=== PATIENT | female | born 2000 | race Hispanic/Latino ===

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

== ENCOUNTER 2018-11-25 18:23 | Emergency (ER) | payer BC, OTHER ==
[2018-11-25] MEDS ORDERED: ACETAMINOPHEN EXTRA STRENGTH 500 MG TABLET ONE (19:08)
[2018-11-25 19:31] LABS: APPEARANCE,URINE Cloudy (CLEAR); BILIRUBIN,URINE Negative (NEGATIVE); COLOR,URINE Dark Yellow (YELLOW); GLUCOSE, URINE (UA) Negative (NEGATIVE); KETONES,URINE Trace mg/dL (NEGATIVE); LEUKOCYTE ESTERASE ,URINE Trace (NEGATIVE); NITRATE,URINE Negative (NEGATIVE); OCCULT BLOOD,URINE Moderate (NEGATIVE); PH,URINE 5.5 (5.0-8.0); PROTEIN,URINE Trace mg/dL (NEGATIVE)
[2018-11-25 19:34] LABS: HCG,QUAL RESULT NEGATIVE (NEGATIVE)
[2018-11-25 19:46] LABS: RAPID GROUP A STREP NEGATIVE (NEGATIVE)
[2018-11-25 19:57] LABS: BACTERIA,URINE Rare /HPF (None Seen); MUCUS,URINE Few LPF (None Seen); SQUAMOUS EPITHELIAL CELL,UR Few /HPF (0-2)
== END 2018-11-25 20:16 | disposition home or self-care (01) ==
LOC: EDH 18:23
DX: B34.9 Viral infection, unspecified (principal)
CPT/HCPCS: 81001; 81025; 87804; 87880

== ENCOUNTER 2020-08-05 18:22 | Emergency (ER) | payer OTHER, SELFPAY ==
[2020-08-05] MEDS ORDERED: ONDANSETRON ODT 4 MG TAB ONE (19:55)
[2020-08-05 20:10] LABS: RAPID GROUP A STREP NEGATIVE (NEGATIVE)
== END 2020-08-05 20:38 | disposition home or self-care (01) ==
LOC: EDH 18:22
DX: A08.4 Viral intestinal infection, unspecified (principal); Z20.828 Contact with and (suspected) exposure to other viral communicable diseases
CPT/HCPCS: 87426; 87804; 87880

== ENCOUNTER 2021-02-27 16:48 | Emergency (ER) | payer MEDICAID, OTHER ==
[~2021-02-27] VITALS: Ht 162.6 cm; Wt 138.3 kg
[2021-02-27 16:51] VITALS: BP 117/90
[2021-02-27 18:21] LABS: APPEARANCE,URINE Cloudy (CLEAR); BILIRUBIN,URINE Negative (NEGATIVE); COLOR,URINE Yellow (YELLOW); GLUCOSE, URINE (UA) Negative (NEGATIVE); KETONES,URINE Negative (NEGATIVE); LEUKOCYTE ESTERASE ,URINE Moderate (NEGATIVE); NITRATE,URINE Positive (NEGATIVE); OCCULT BLOOD,URINE Large (NEGATIVE); PROTEIN,URINE Trace mg/dL (NEGATIVE)
[2021-02-27 18:25] LABS: BASOPHILS % (AUTO) 0.2 % (0.0-5.0); EOSINOPHILS % (AUTO) 2.3 % (0.0-8.0); HEMATOCRIT 37.2 % (36-48); LYMPHOCYTES % (AUTO) 25.1 % (21.0-51.0); MEAN CORPUSCULAR HEMOGLOBIN 22.5 pg (27.0-33.0); MEAN CORPUSCULAR HGB CONC 30.9 g/dL (32.0-36.0); MEAN CORPUSCULAR VOLUME 72.8 fL (79-99); MONOCYTES % (AUTO) 4.1 % (3.0-13.0); PLATELET COUNT (AUTO) 322 K/uL (130-400); RED BLOOD CELL COUNT(AUTO) 5.11 MIL/uL (4.00-5.50); RED CELL DISTRIBUTION WIDTH 16.4 % (11.0-15.5); WHITE BLOOD COUNT (AUTO) 12.3 K/uL (4.8-10.8)
[2021-02-27 18:28] LABS: BACTERIA,URINE Moderate /HPF (None Seen); RBC,URINE 26-50 /HPF (0-1); SQUAMOUS EPITHELIAL CELL,UR Few /HPF (0-2)
[2021-02-27] MEDS ORDERED: CEFTRIAXONE 1G VIAL IM ONE (18:30)
[2021-02-27 18:46] LABS: CREATININE 0.6 mg/dL (0.5-1.5)
[2021-02-27 19:11] LABS: ALBUMIN 3.1 g/dL (3.5-5.0); BILIRUBIN,TOTAL 0.2 mg/dL (0.2-1.0); TOTAL PROTEIN, SERUM 7.5 g/dL (6.0-8.3)
[2021-02-27] MEDS ORDERED: CEPH500B PO (19:20)
[2021-02-27] MEDS ORDERED: LIDOCAINE HCL-MPF 1% 2ML VIAL ONE (19:47)
[2021-02-27] MEDS ORDERED: CEFTRIAXONE 1G VIAL ONE (19:47)
== END 2021-02-27 20:28 | disposition home or self-care (01) ==
LOC: EDH 16:48
DX: O20.0 Threatened abortion (principal); O23.41 Unspecified infection of urinary tract in pregnancy, first trimester; Z3A.01 Less than 8 weeks gestation of pregnancy
CPT/HCPCS: 36415; 76817; 80053; 81001; 84702; 85025; 86900; 86901; 87077; 87088; 87186; 96372; 99284; J0696; J3490